=== PATIENT | male | born 1955 | race Hispanic/Latino ===

== ENCOUNTER 2017-02-15 14:01 | Outpatient (CLI) | payer OTHER ==
[2017-02-15 14:49] LABS: Hematocrit 33.8 % (35.5-45.6); Hemoglobin 11.4 gm/dl (11.8-15.2); Mean Corpuscular HGB Conc 34 % (32-34); Mean Corpuscular Hemoglobin 32 pg (28-32); Mean Corpuscular Volume 94 fl (84-94); Platelet Count 316 K/mm3 (140-440); Red Blood Count 3.59 M/mm3 (3.65-5.03); Red Cell Distribution Width 13.3 % (13.2-15.2); White Blood Count 7.8 K/mm3 (4.5-11.0)
[2017-02-15 15:01] LABS: Alanine Aminotransferase 16 units/L (7-56); Albumin/Globulin Ratio 1.2 %; Alkaline Phosphatase 90 units/L (35-129); Anion Gap 17 mmol/L; BUN/Creatinine Ratio 18.57; Bilirubin,Total 0.3 mg/dL (0.1-1.2); Blood Urea Nitrogen 13 mg/dL (9-20); Calcium 9.4 mg/dL (8.4-10.2); Carbon Dioxide 28 mmol/L (22-30); Chloride 100.1 mmol/L (98-107); Glucose 97 mg/dL (75-100); Potassium 4.1 mmol/L (3.6-5.0); Sodium 141 mmol/L (137-145); Total Protein 7.3 g/dL (6.3-8.2)
== END 2017-02-15 14:02 | disposition home or self-care (01) ==
LOC: LAB 14:01
PROVIDERS: ATTEND Surgery
DX: K57.92 Diverticulitis of intestine, part unspecified, without perforation or abscess without bleeding (principal)
CPT/HCPCS: 36415; 80053; 85027; 93005; 93010

== ENCOUNTER 2017-04-02 15:23 | Outpatient (CLI) | payer OTHER | END 2017-04-02 15:24 | disposition home or self-care (01) | LOC: LABHHL 15:23 | PROVIDERS: ATTEND Surgery | DX: Z12.11 Encounter for screening for malignant neoplasm of colon (principal); K57.80 Diverticulitis of intestine, part unspecified, with perforation and abscess without bleeding | CPT/HCPCS: 88305 ==

== ENCOUNTER 2017-07-07 13:10 | Outpatient (CLI) | payer OTHER ==
[2017-07-07 13:45] LABS: Hematocrit 40.3 % (35.5-45.6); Hemoglobin 13.9 gm/dl (11.8-15.2); Mean Corpuscular HGB Conc 35 % (32-34); Mean Corpuscular Hemoglobin 32 pg (28-32); Mean Corpuscular Volume 92 fl (84-94); Platelet Count 201 K/mm3 (140-440); Red Cell Distribution Width 13.3 % (13.2-15.2); White Blood Count 5.1 K/mm3 (4.5-11.0)
[2017-07-07 14:04] LABS: Alanine Aminotransferase 14 units/L (7-56); Albumin 4.5 g/dL (3.9-5); Albumin/Globulin Ratio 1.5 %; Alkaline Phosphatase 69 units/L (35-129); Anion Gap 16 mmol/L; BUN/Creatinine Ratio 17.14; Blood Urea Nitrogen 12 mg/dL (9-20); Calcium 9.5 mg/dL (8.4-10.2); Carbon Dioxide 27 mmol/L (22-30); Chloride 102.1 mmol/L (98-107); Glucose 99 mg/dL (75-100); Potassium 4.3 mmol/L (3.6-5.0); Sodium 141 mmol/L (137-145); Total Protein 7.6 g/dL (6.3-8.2)
== END 2017-07-07 13:11 | disposition home or self-care (01) ==
LOC: CARD 13:10 → XRAY 13:10 → CARD 13:11
PROVIDERS: ATTEND Surgery
DX: I44.0 Atrioventricular block, first degree (principal); K57.92 Diverticulitis of intestine, part unspecified, without perforation or abscess without bleeding; Z87.891 Personal history of nicotine dependence
CPT/HCPCS: 36415; 80053; 85027; 93005; 93010

== ENCOUNTER 2017-07-27 10:35 | Outpatient (CLI) | payer OTHER | END 2017-07-27 10:36 | disposition home or self-care (01) | LOC: WOUND 10:35 | PROVIDERS: ATTEND Surgery | DX: T81.89XA Other complications of procedures, not elsewhere classified, initial encounter (principal); Y83.8 Other surgical procedures as the cause of abnormal reaction of the patient, or of later complication, without mention of misadventure at the time of the procedure | CPT/HCPCS: 97605; G0463; 99215 ==

== ENCOUNTER 2017-07-28 11:33 | Emergency (ER) | payer OTHER ==
--- NOTE | 2017-07-28 14:50 | XRay Report ---
PORTABLE CHEST INDICATION: Dyspnea. COMPARISON: None similar at this institution. FINDINGS: Portable, frontal chest radiograph demonstrates normal cardiomediastinal silhouette. Clear lungs. Slight aortic knob calcifications. EKG leads. Multilevel thoracic spondylosis. CONCLUSION: No significant acute chest process, as described. Thank you for the opportunity to participate in this patient's care.
[2017-07-28 14:56] LABS: INR 1.08 (0.87-1.13)
[2017-07-28 14:57] LABS: Partial Thromboplastin Time 24.3 Sec. (24.2-36.6)
[2017-07-28 14:58] LABS: Creatine Kinase MB 2.4 ng/mL (0.0-4.0)
[2017-07-28 14:59] LABS: Anion Gap 14 mmol/L; Blood Urea Nitrogen 14 mg/dL (9-20); Calcium 8.9 mg/dL (8.4-10.2); Carbon Dioxide 29 mmol/L (22-30); Chloride 99.5 mmol/L (98-107); Creatine Kinase 60 units/L (55-170); Glucose 103 mg/dL (75-100); Potassium 3.4 mmol/L (3.6-5.0); Sodium 139 mmol/L (137-145)
[2017-07-28 15:00] LABS: Alanine Aminotransferase 18 units/L (7-56); Albumin 3.9 g/dL (3.9-5); Albumin/Globulin Ratio 1.6 %; Alkaline Phosphatase 59 units/L (35-129); Total Protein 6.4 g/dL (6.3-8.2)
[2017-07-28 15:11] LABS: Bilirubin,Direct < 0.2 mg/dL (0-0.2)
[2017-07-28 15:20] LABS: Hematocrit 38.3 % (35.5-45.6); Hemoglobin 12.9 gm/dl (11.8-15.2); Mean Corpuscular HGB Conc 34 % (32-34); Mean Corpuscular Hemoglobin 32 pg (28-32); Mean Corpuscular Volume 94 fl (84-94); Platelet Count 220 K/mm3 (140-440); Red Blood Count 4.06 M/mm3 (3.65-5.03); Red Cell Distribution Width 12.8 % (13.2-15.2); White Blood Count 8.4 K/mm3 (4.5-11.0)
[2017-07-28 15:39] LABS: Bacteria,Urine 4+ /HPF (Negative); Bilirubin,Urine NEG (Negative); Blood,Urine SM (Negative); Ketones,Urine NEG (Negative); Leukocyte Esterase,Urine LG (Negative); Mucus,Urine 3+ /HPF; Nitrite,Urine POS (Negative); Protein,Urine <15 mg/dL mg/dL (Negative); Urobilinogen,Urine < 2.0 mg/dL (<2.0)
--- NOTE | 2017-07-28 16:23 | Cat Scan Report ---
CT angiography of the chest including 3-D reconstructed images History: Dyspnea and chest pain. Findings: There is no evidence of pulmonary emboli. The lungs are clear except for minimal parenchymal scarring in the left base. A few small blebs are seen in the right upper lobe posteriorly. No pleural fluid is seen. Atherosclerotic calcifications are seen in the descending thoracic aorta. Extensive degenerative changes are seen in the dorsal spine. Impression: No evidence of pulmonary emboli.
[2017-07-28 17:23] LABS: Blastocytes % (Manual) 0 %
[2017-07-28 17:24] LABS: Diff Status Complete; Platelet Estimate Consistent w Auto; RBC Morphology Normal
--- NOTE | 2017-07-28 18:47 | Emergency Department Report ---
ED General Adult HPI - General Chief complaint: Dyspnea/Respdistress Stated complaint: SOB/SP SURGERY 07/19 Time Seen by Provider: 07/28/17 13:04 Source: patient Mode of arrival: Ambulatory Limitations: No Limitations - History of Present Illness Initial comments: Patient is a somewhat strange history of having shortness of breath postoperatively from his reversal of colostomy on 07/19/2017. States he has had it every day. He states he has had some running when he swallows. Excessive hiccups. He admits some anxiety. He states he never talked to his doctor despite being in the hospital for 5 days with these episodes of dyspnea. He states he thought that was normal with surgery. He finally came to the emergency department now having these symptoms for 8 days intermittently. Doesn 't complain of chest pain pressure or tightness. Denies any leg pain or swelling. He does admit again to stress. -: Gradual, week(s) Consistency: intermittent Improves with: none Worsens with: none Associated Symptoms: denies other symptoms - Related Data Home Medications Medication Instructions Recorded Confirmed Last Taken Famotidine [Pepcid] 20 mg PO BID 07/08/17 07/28/17 07/28/17 Lisinopril [Zestril TAB] 10 mg PO QDAY 07/08/17 07/28/17 07/28/17 Metoprolol 25 mg PO BID 07/08/17 07/28/17 07/28/17 Previous Rx's Medication Instructions Recorded Last Taken Type Cefuroxime Axetil [Ceftin] 500 mg PO Q12H #14 tablet 07/28/17 Unknown Rx Allergies Allergy/AdvReac Type Severity Reaction Status Date / Time No Known Allergies Allergy Verified 07/08/17 15:07 ED Review of Systems ROS: Stated complaint: SOB/SP SURGERY 07/19 Other details as noted in HPI Constitutional: denies: chills, fever Eyes: denies: eye pain, eye discharge, vision change ENT: denies: ear pain, throat pain Respiratory: see HPI, shortness of breath. denies: cough, wheezing Cardiovascular: denies: chest pain, palpitations Endocrine: no symptoms reported Gastrointestinal: denies: abdominal pain, nausea, diarrhea Genitourinary: denies: urgency, dysuria Musculoskeletal: denies: back pain, joint swelling, arthralgia Skin: denies: rash, lesions Neurological: denies: headache, weakness, paresthesias Psychiatric: denies: anxiety, depression Hematological/Lymphatic: denies: easy bleeding, easy bruising ED Past Medical Hx - Past Medical History Hx Hypertension: Yes (X 3 MONTHS) Hx Heart Attack/AMI: No Hx Congestive Heart Failure: No Hx Diabetes: No Hx Deep Vein Thrombosis: No Hx Liver Disease: No Hx Arthritis: No Hx Asthma: Yes ( CHILD) Hx COPD: No - Surgical History Hx Pacemaker: No Additional Surgical History: Colon - Social History Smoking Status: Former Smoker - Medications Home Medications: Home Medications Medication Instructions Recorded Confirmed Last Taken Type Famotidine [Pepcid] 20 mg PO BID 07/08/17 07/28/17 07/28/17 History Lisinopril [Zestril TAB] 10 mg PO QDAY 07/08/17 07/28/17 07/28/17 History Metoprolol 25 mg PO BID 07/08/17 07/28/17 07/28/17 History Cefuroxime Axetil [Ceftin] 500 mg PO Q12H #14 tablet 07/28/17 Unknown Rx ED Physical Exam - General Limitations: No Limitations General appearance: alert, in no apparent distress - Head Head exam: Present: atraumatic, normocephalic - Eye Eye exam: Present: normal appearance - ENT ENT exam: Present: normal exam, mucous membranes moist - Neck Neck exam: Present: normal inspection. Absent: tenderness, meningismus - Respiratory Respiratory exam: Present: normal lung sounds bilaterally. Absent: respiratory distress - Cardiovascular Cardiovascular Exam: Present: regular rate, normal rhythm. Absent: systolic murmur, diastolic murmur, rubs, gallop - GI/Abdominal GI/Abdominal exam: Present: soft, normal bowel sounds. Absent: distended, tenderness, guarding, rebound, rigid - Rectal Rectal exam: Present: deferred - Extremities Exam Extremities exam: Present: normal inspection, full ROM, normal capillary refill. Absent: tenderness, pedal edema, joint swelling, calf tenderness - Back Exam Back exam: Present: normal inspection. Absent: CVA tenderness (R), CVA tenderness (L) - Neurological Exam Neurological exam: Present: alert, oriented X3, CN II-XII intact. Absent: motor sensory deficit - Psychiatric Psychiatric exam: Present: normal affect, normal mood - Skin Skin exam: Present: warm, dry, intact, normal color. Absent: rash ED Course Vital Signs 07/28/17 07/28/17 07/28/17 11:45 12:34 13:42 Temperature 98.3 F 98.3 F 98.6 F Pulse Rate 73 59 L 58 L Respiratory 26 H 19 18 Rate Blood Pressure 144/96 156/91 146/81 O2 Sat by Pulse 100 98 100 Oximetry 07/28/17 07/28/17 17:03 18:38 Temperature 98.6 F Pulse Rate 62 60 Respiratory 19 Rate Blood Pressure 167/84 O2 Sat by Pulse Oximetry - Reevaluation(s) Reevaluation #1: Patient has been here under observation in the emergency department for several hours. His had no dyspnea. His pulse oximetry was 9800. He's had extensive testing. I can't say I found any cause for her dyspnea. I discussed this with him. He states that he feels reassured and he thinks that he may have anxiety. In any case he is encouraged to follow up with his primary care providers. He is appropriate for outpatient disposition of this structure. 07/28/17 18:45 Reevaluation #2: Patient was found to have a UTI. His heart to connect that to his symptoms. However he will be placed on an antibiotic and a urine culture were sent. 07/28/17 18:46 ED Medical Decision Making - Lab Data Result diagrams: 07/28/17 14:16 07/28/17 14:16 Laboratory Results - last 24 hr 07/28/17 07/28/17 07/28/17 14:16 14:16 14:16 WBC 8.4 RBC 4.06 Hgb 12.9 Hct 38.3 MCV 94 MCH 32 MCHC 34 RDW 12.8 L Plt Count 220 Add Manual Diff Complete Total Counted 100 Seg Neuts % (Manual) 76.0 H Band Neutrophils % 0 Lymphocytes % (Manual) 15.0 Reactive Lymphs % (Man) 0 Monocytes % (Manual) 5.0 Eosinophils % (Manual) 3.0 Basophils % (Manual) 1.0 Metamyelocytes % 0 Myelocytes % 0 Promyelocytes % 0 Blast Cells % 0 Nucleated RBC % Not Reportable Seg Neutrophils # Man 6.4 Band Neutrophils # 0.0 Lymphocytes # (Manual) 1.3 Abs React Lymphs (Man) 0.0 Monocytes # (Manual) 0.4 Eosinophils # (Manual) 0.3 Basophils # (Manual) 0.1 Metamyelocytes # 0.0 Myelocytes # 0.0 Promyelocytes # 0.0 Blast Cells # 0.0 WBC Morphology Not Reportable Hypersegmented Neuts Not Reportable Hyposegmented Neuts Not Reportable Hypogranular Neuts Not Reportable Smudge Cells Not Reportable Toxic Granulation Not Reportable Toxic Vacuolation Not Reportable Dohle Bodies Not Reportable Pelger-Huet Anomaly Not Reportable Marilyn Rods Not Reportable Platelet Estimate Consistent w auto Clumped Platelets Not Reportable Plt Clumps, EDTA Not Reportable Large Platelets Not Reportable Giant Platelets Not Reportable Platelet Satelliting Not Reportable Plt Morphology Comment Not Reportable RBC Morphology Normal Dimorphic RBCs Not Reportable Polychromasia Not Reportable Hypochromasia Not Reportable Poikilocytosis Not Reportable Anisocytosis Not Reportable Microcytosis Not Reportable Macrocytosis Not Reportable Spherocytes Not Reportable Pappenheimer Bodies Not Reportable Sickle Cells Not Reportable Target Cells Not Reportable Tear Drop Cells Not Reportable Ovalocytes Not Reportable Helmet Cells Not Reportable [place] Bodies Not Reportable [place] Rings Not Reportable Roger Cells Not Reportable Bite Cells Not Reportable Crenated Cell Not Reportable Elliptocytes Not Reportable Acanthocytes (Spur) Not Reportable Rouleaux Not Reportable Hemoglobin C Crystals Not Reportable Schistocytes Not Reportable Malaria parasites Not Reportable Karl Bodies Not Reportable Hem Pathologist Commnt No PT INR APTT D-Dimer Sodium 139 Potassium 3.4 L Chloride 99.5 Carbon Dioxide 29 Anion Gap 14 BUN 14 Creatinine 0.7 L Estimated GFR > 60 BUN/Creatinine Ratio 20.00 Glucose 103 H Lactic Acid 0.50 L Calcium 8.9 Magnesium 1.80 Total Bilirubin Direct Bilirubin AST ALT Alkaline Phosphatase Total Creatine Kinase 60 CK-MB (CK-2) 2.4 CK-MB (CK-2) Rel Index 4.0 Troponin T < 0.010 NT-Pro-B Natriuret Pep Total Protein Albumin Albumin/Globulin Ratio Urine Color Urine Turbidity Urine pH Ur Specific [place] Urine Protein Urine Glucose (UA) Urine Ketones Urine Blood Urine Nitrite Urine Bilirubin Urine Urobilinogen Ur Leukocyte Esterase Urine WBC (Auto) Urine RBC (Auto) Urine Bacteria (Auto) Urine Mucus Blood Type Antibody Screen 07/28/17 07/28/17 07/28/17 14:16 14:16 14:16 WBC RBC Hgb Hct MCV MCH MCHC RDW Plt Count Add Manual Diff Total Counted Seg Neuts % (Manual) Band Neutrophils % Lymphocytes % (Manual) Reactive Lymphs % (Man) Monocytes % (Manual) Eosinophils % (Manual) Basophils % (Manual) Metamyelocytes % Myelocytes % Promyelocytes % Blast Cells % Nucleated RBC % Seg Neutrophils # Man Band Neutrophils # Lymphocytes # (Manual) Abs React Lymphs (Man) Monocytes # (Manual) Eosinophils # (Manual) Basophils # (Manual) Metamyelocytes # Myelocytes # Promyelocytes # Blast Cells # WBC Morphology Hypersegmented Neuts Hyposegmented Neuts Hypogranular Neuts Smudge Cells Toxic Granulation Toxic Vacuolation Dohle Bodies Pelger-Huet Anomaly Marilyn Rods Platelet Estimate Clumped Platelets Plt Clumps, EDTA Large Platelets Giant Platelets Platelet Satelliting Plt Morphology Comment RBC Morphology Dimorphic RBCs Polychromasia Hypochromasia Poikilocytosis Anisocytosis Microcytosis Macrocytosis Spherocytes Pappenheimer Bodies Sickle Cells Target Cells Tear Drop Cells Ovalocytes Helmet Cells [place] Bodies [place] Rings Roger Cells Bite Cells Crenated Cell Elliptocytes Acanthocytes (Spur) Rouleaux Hemoglobin C Crystals Schistocytes Malaria parasites Karl Bodies Hem Pathologist Commnt PT 13.9 INR 1.08 APTT 24.3 D-Dimer 394.64 H Sodium Potassium Chloride Carbon Dioxide Anion Gap BUN Creatinine Estimated GFR BUN/Creatinine Ratio Glucose Lactic Acid Calcium Magnesium Total Bilirubin 0.50 Direct Bilirubin < 0.2 AST 16 ALT 18 Alkaline Phosphatase 59 Total Creatine Kinase CK-MB (CK-2) CK-MB (CK-2) Rel Index Troponin T NT-Pro-B Natriuret Pep 80.60 Total Protein 6.4 Albumin 3.9 Albumin/Globulin Ratio 1.6 Urine Color Urine Turbidity Urine pH Ur Specific [place] Urine Protein Urine Glucose (UA) Urine Ketones Urine Blood Urine Nitrite Urine Bilirubin Urine Urobilinogen Ur Leukocyte Esterase Urine WBC (Auto) Urine RBC (Auto) Urine Bacteria (Auto) Urine Mucus Blood Type A POSITIVE Antibody Screen Negative 07/28/17 14:44 WBC RBC Hgb Hct MCV MCH MCHC RDW Plt Count Add Manual Diff Total Counted Seg Neuts % (Manual) Band Neutrophils % Lymphocytes % (Manual) Reactive Lymphs % (Man) Monocytes % (Manual) Eosinophils % (Manual) Basophils % (Manual) Metamyelocytes % Myelocytes % Promyelocytes % Blast Cells % Nucleated RBC % Seg Neutrophils # Man Band Neutrophils # Lymphocytes # (Manual) Abs React Lymphs (Man) Monocytes # (Manual) Eosinophils # (Manual) Basophils # (Manual) Metamyelocytes # Myelocytes # Promyelocytes # Blast Cells # WBC Morphology Hypersegmented Neuts Hyposegmented Neuts Hypogranular Neuts Smudge Cells Toxic Granulation Toxic Vacuolation Dohle Bodies Pelger-Huet Anomaly Marilyn Rods Platelet Estimate Clumped Platelets Plt Clumps, EDTA Large Platelets Giant Platelets Platelet Satelliting Plt Morphology Comment RBC Morphology Dimorphic RBCs Polychromasia Hypochromasia Poikilocytosis Anisocytosis Microcytosis Macrocytosis Spherocytes Pappenheimer Bodies Sickle Cells Target Cells Tear Drop Cells Ovalocytes Helmet Cells [place] Bodies [place] Rings [place] Cells Bite Cells Crenated Cell Elliptocytes Acanthocytes (Spur) Rouleaux Hemoglobin C Crystals Schistocytes Malaria parasites Karl Bodies Hem Pathologist Commnt PT INR APTT D-Dimer Sodium Potassium Chloride Carbon Dioxide Anion Gap BUN Creatinine Estimated GFR BUN/Creatinine Ratio Glucose Lactic Acid Calcium Magnesium Total Bilirubin Direct Bilirubin AST ALT Alkaline Phosphatase Total Creatine Kinase CK-MB (CK-2) CK-MB (CK-2) Rel Index Troponin T NT-Pro-B Natriuret Pep Total Protein Albumin Albumin/Globulin Ratio Urine Color Yellow Urine Turbidity Slightly-cloudy Urine pH 6.0 Ur Specific [place] 1.020 Urine Protein <15 mg/dl Urine Glucose (UA) Neg Urine Ketones Neg Urine Blood Sm Urine Nitrite Pos Urine Bilirubin Neg Urine Urobilinogen < 2.0 Ur Leukocyte Esterase Lg Urine WBC (Auto) 131.0 H Urine RBC (Auto) 8.0 Urine Bacteria (Auto) 4+ Urine Mucus 3+ Blood Type Antibody Screen - EKG Data -: EKG Interpreted by Me EKG shows normal: sinus rhythm, axis, intervals, ST-T waves - EKG Data Interpretation: no acute changes, nonspecific ST-T wave angel, other ([id number]) Critical care attestation.: If time is entered above; I have spent that time in minutes in the direct care of this critically ill patient, excluding procedure time. ED Disposition Clinical Impression: Dyspnea Qualifiers: Dyspnea type: unspecified Qualified Code(s): R06.00 - Dyspnea, unspecified UTI (urinary tract infection) Qualifiers: Urinary tract infection type: site unspecified Hematuria presence: without hematuria Qualified Code(s): N39.0 - Urinary tract infection, site not specified Disposition: TO HOME OR SELFCARE Is pt being admited?: No Does the pt Need Aspirin: No Condition: Stable Instructions: Dyspnea (ED), Urinary Tract Infection in Men (ED) Additional Instructions: Normal lung and heart testing turned to the inconclusive for any cause shortness of breath. However your found to have a urinary tract infection. I don't know if this is all connected. However antibiotics are prescribed. Follow up on urine culture in 2 days with her primary care provider. Return any fever or any acute change or worsening symptoms. Prescriptions: Cefuroxime Axetil [Ceftin] 500 mg PO Q12H #14 tablet Referrals: PRIMARY CAREMD [Primary Care Provider] - 2-3 Days Time of Disposition: 18:49
[2017-07-28 19:19] VITALS: BP 176/94
== END 2017-07-28 19:21 | disposition home or self-care (01) ==
LOC: ED 11:33
DX: N39.0 Urinary tract infection, site not specified (principal); R06.02 Shortness of breath; I10 Essential (primary) hypertension; J45.909 Unspecified asthma, uncomplicated
CPT/HCPCS: 36415; 71010; 71275; 80048; 80074; 81001; 82140; 82550; 82553; 83735; 83880; 84484; 85007; 85025; 85379; 85610; 85730; 86850; 86900; 86901; 87076; 87086; 87186; 93005; 93010; 99284; Q9967

== ENCOUNTER 2017-07-29 11:20 | Outpatient (CLI) | payer OTHER | END 2017-07-29 11:21 | disposition home or self-care (01) | LOC: WOUND 11:20 | PROVIDERS: ATTEND Nurse Practitioner | DX: S31.104D Unspecified open wound of abdominal wall, left lower quadrant without penetration into peritoneal cavity, subsequent encounter (principal); X58.XXXD Exposure to other specified factors, subsequent encounter | CPT/HCPCS: 97606 ==